=== PATIENT | female | born 1955 | race Caucasian/White ===

== ENCOUNTER 2018-01-29 10:47 | Inpatient (IN) | payer OTHER ==
[2018-01-29 10:53] VITALS: BMI 24.9
--- NOTE | 2018-01-29 12:15 | RAD ---
HISTORY: upper back pain COMPARISON: No prior. TECHNIQUE: Chest PA and lateral FINDINGS: LUNGS: No active pulmonary disease. PLEURA: No significant pleural effusion identified. No pneumothorax apparent. CARDIOVASCULAR: Atherosclerotic aortic calcifications. Cardiomediastinal silhouette within normal OSSEOUS STRUCTURES: Degenerative changes. VISUALIZED UPPER ABDOMEN: Normal. OTHER FINDINGS: None. IMPRESSION: No active disease.
--- NOTE | 2018-01-29 12:26 | ED PDOC ---
HPI: Back Time Seen by Provider: 01/29/18 11:06 Chief Complaint (Nursing): Back Pain Chief Complaint (Provider): Back Pain History Per: Patient, Family ( at bedside) History/Exam Limitations: no limitations Onset/Duration Of Symptoms: Days (x4 weeks) Current Symptoms Are (Timing): Still Present Additional Complaint(s): 62 y/o female presents for evaluation of intermittent upper back pain x4 weeks. Patient states pain worsens with movement and with laying down flat. Denies taking medication prior to arrival, trauma or falls. Patient states that pain is sometimes associated with epigastric abdominal pain. Denies nausea, vomiting , diarrhea, fever, urinary symptoms, cough, and shortness of breath. Patient reports a history of diabetes and HTN, but admits to being noncompliant with her medicines because she claims they dont make her feel well when she takes them. PMD: Aby Fu ([email or web address]) Past Medical History Reviewed: Historical Data, Nursing Documentation, Vital Signs Vital Signs: Last Vital Signs Temp 98 F 01/29/18 10:53 Pulse 85 01/29/18 10:53 Resp 16 01/29/18 10:53 BP 201/89 H 01/29/18 10:53 Pulse Ox 98 01/29/18 11:03 - Medical History PMH: Diabetes, HTN - Surgical History Other surgeries: fibroma removal - Family History Family History: States: Unknown Family Hx - Living Arrangements Living Arrangements: With Family - Social History Current smoker - smoking cessation education provided: No Alcohol: None Drugs: Denies - Home Medications Home Medications: Ambulatory Orders Medication Instructions Recorded Penicillin VK [Penicillin VK Tab] 500 mg PO Q6 01/29/18 Atorvastatin [Lipitor] 10 mg PO DAILY #30 tab 01/30/18 Lisinopril [Zestril] 2.5 mg PO DAILY #30 tab 01/30/18 metFORMIN [glucOPHAGE] 500 mg PO BIDWM #60 tab 01/30/18 - Allergies Allergies/Adverse Reactions: Allergies Allergy/AdvReac Type Severity Reaction Status Date / Time No Known Allergies Allergy Verified 02/05/15 12:20 Review of Systems ROS Statement: Except As Marked, All Systems Reviewed And Found Negative Constitutional: Negative for: Fever Respiratory: Negative for: Cough, Shortness of Breath Gastrointestinal: Positive for: Abdominal Pain. Negative for: Nausea, Vomiting , Diarrhea Genitourinary Female: Negative for: Dysuria, Frequency, Incontinence Musculoskeletal: Positive for: Back Pain Physical Exam - Reviewed Nursing Documentation Reviewed: Yes Vital Signs Reviewed: Yes - Physical Exam Comments: GENERAL APPEARANCE: Patient is awake, alert, oriented x 3, in no acute distress , but uncomfortable. SKIN: Warm, dry; (-) cyanosis. EYES: (-) conjunctival pallor. ENMT: Mucous membranes moist. NECK: Supple, FROM (-) tenderness, (-) stiffness, (-) lymphadenopathy. CHEST AND RESPIRATORY: (-) rales, (-) rhonchi, (-) wheezes; breath sounds equal bilaterally. Speaking in full sentences, respirations even and nonlabored. HEART AND CARDIOVASCULAR: (-) irregularity; (-) murmur, (-) gallop. ABDOMEN AND GI: (+) mild epigastric tenderness; Remainder of abdomen: soft, non- tender, non-distended. (-) palpable masses (-) CVA tenderness BACK: (+) left parathoracic tenderness, (-) direct bony tenderness, (-) deformity. EXTREMITIES: FROM bilateral upper extremities (+) left posterior shoulder tenderness, (-) deformity. Distal pulses good bilaterally. NEURO AND PSYCH: Mental status as above. Gait steady, speech clear. (-) facial asymmetry (-) aphasia - Laboratory Results Result Diagrams: 01/31/18 06:00 01/31/18 06:00 Urine dip results: Positive for: Ketones (trace), Glucose (500), Protein (trace) . Negative for: Leukocyte Esterase, Blood, Nitrate, Bilirubin - ECG O2 Sat by Pulse Oximetry: 98 (RA) Pulse Ox Interpretation: Normal Medical Decision Making Medical Decision Making: Clinical Impression: abdominal pain, back pain, r/o pancreatitis Plan: -EKG -CMP -Lipase -Troponin I -Urine dipstick -CBC -D Dimer -PTT/PT -1LNS -Toradol 15mg IVP -Ultram 50mg PO -Valum 5mg PO -truck striker -IV insertion -Glucose, Blood, POC -Reevaluation 1225 EKG: NSR @ 67bpm, (-) ST elevation, QTc 424 CXR reviewed, radiology report follows HISTORY: upper back pain COMPARISON: No prior. TECHNIQUE: Chest PA and lateral FINDINGS: LUNGS: No active pulmonary disease. PLEURA: No significant pleural effusion identified. No pneumothorax apparent. CARDIOVASCULAR: Atherosclerotic aortic calcifications. Cardiomediastinal silhouette within normal OSSEOUS STRUCTURES: Degenerative changes. VISUALIZED UPPER ABDOMEN: Normal. OTHER FINDINGS: None. IMPRESSION: No active disease. 1300 Accucheck: 213 Blood glucose: 246 Labs reviewed, elevated lipase: 906. CT abd/pel with IV contrast ordered. On re-evaluation patient resting comfortably. Patient further reports that she has not taken her DM medication in 2 years because it "makes her feel bad". Repeat BP: 171/[address] Additional 1L NS Bolus ordered. 1525 PROCEDURE: CT Abdomen and Pelvis with contrast HISTORY: pancreatitis COMPARISON: None. TECHNIQUE: Contrast dose: 90 mL Omnipaque 300 (IV infiltrated mid injection) Radiation dose: Total exam DLP = 399.2 mGy-cm. This CT exam was performed using one or more of the following dose reduction techniques: Automated exposure control, adjustment of the mA and/or kV according to patient size, and/or use of iterative reconstruction technique. FINDINGS: LOWER THORAX: Unremarkable. LIVER: Unremarkable. No gross lesion or ductal dilatation. GALLBLADDER AND BILE DUCTS: Unremarkable. PANCREAS: Mild stranding around the pancreatic head/proximal body. No gross lesion or ductal dilatation. SPLEEN: Unremarkable. ADRENALS: Unremarkable. No mass. KIDNEYS AND URETERS: Unremarkable. No hydronephrosis. No solid mass. VASCULATURE: Unremarkable. No aortic aneurysm. BOWEL: Unremarkable. No obstruction. No gross mural thickening. APPENDIX: Normal appendix. PERITONEUM: Unremarkable. No free fluid. No free air. LYMPH NODES: Unremarkable. No enlarged lymph nodes. BLADDER: Unremarkable. REPRODUCTIVE: Unremarkable. BONES: No acute fracture. OTHER FINDINGS: None. IMPRESSION: Mild stranding around pancreatic head/body compatible with acute pancreatitis. No evidence of necrosis or adjacent fluid collection. Consult placed to Dr Jurado, who admits for Dr Fu [address] Jurado, who is agreeable to admission. Lactated ringer and lipid panel ordered. Consult placed to general surgery, Dr Al Isabel. Consult placed to GI, Dr Sheffield. Cipro IVP and Flagyl IVP ordered. Morphine 2mg and Zofran 4mg IVP ordered for additional pain control. Lab/Diagnostic results d/w the patient/family members in great detail. Diagnosis of pancreatitis, abdominal and upper back pain d/w the patient. Based on history, exam and diagnostic results, plan will be for inpatient admission to med/surg. Scribe Attestation: Documented by Frank Calixto, acting as a scribe for Elenita Donahue PA-C. Provider Scribe Attestation: All medical record entries made by the Scribe were at my direction and personally dictated by me. I have reviewed the chart and agree that the record accurately reflects my personal performance of the history, physical exam, medical decision making, and the department course for this patient. I have also personally directed, reviewed, and agree with the discharge instructions and disposition. Disposition - Clinical Impression Clinical Impression: Pancreatitis, Back pain, Hyperglycemia, Abdominal pain - Patient ED Disposition Is Patient to be Admitted: Yes Counseled Patient/Family Regarding: Studies Performed, Diagnosis - Disposition Disposition Time: 15:33 Condition: FAIR - Pt Status Changed To: Hospital Disposition Of: Inpatient - Admit Certification Admit to Inpatient:: After my assessment, the patient will require hospitalization for at least two midnights. This is because of the severity of symptoms shown, intensity of services needed, and/or the medical risk in this patient being treated as an outpatient. - POA Present On Arrival: Poor Glycemic Control Results - Lab Results Lab Results: 01/29/18 01/29/18 01/29/18 12:34 11:45 11:45 WBC RBC Hgb Hct MCV MCH MCHC RDW Plt Count MPV Neut % (Auto) Lymph % (Auto) [place] % (Auto) Eos % (Auto) Baso % (Auto) Neut # (Auto) Lymph # (Auto) [place] # (Auto) Eos # (Auto) Baso # (Auto) PT 10.5 INR 1.0 APTT 20.2 L D-Dimer, Quantitative 203 Sodium 138 Potassium 4.4 Chloride 104 Carbon Dioxide 25 Anion Gap 13 BUN 18 H Creatinine 0.4 L Est GFR ( Amer) > 60 Est GFR (Non-Af Amer) > 60 POC Glucose (mg/dL) 213 H Random Glucose 246 H Calcium 9.0 Total Bilirubin 0.7 AST 26 ALT 37 Alkaline Phosphatase 102 Troponin I < 0.0120 Total Protein 7.3 Albumin 3.9 Globulin 3.3 Albumin/Globulin Ratio 1.2 Lipase 906 H 01/29/18 11:45 WBC 5.1 RBC 4.94 Hgb 14.2 Hct 42.5 MCV 86.1 MCH 28.6 MCHC 33.3 RDW 12.6 Plt Count 220 MPV 9.5 Neut % (Auto) 49.2 L Lymph % (Auto) 42.4 H [place] % (Auto) 7.0 Eos % (Auto) 0.8 Baso % (Auto) 0.6 Neut # (Auto) 2.5 Lymph # (Auto) 2.2 [place] # (Auto) 0.4 Eos # (Auto) 0.0 Baso # (Auto) 0.0 PT INR APTT D-Dimer, Quantitative Sodium Potassium Chloride Carbon Dioxide Anion Gap BUN Creatinine Est GFR ( Amer) Est GFR (Non-Af Amer) POC Glucose (mg/dL) Random Glucose Calcium Total Bilirubin AST ALT Alkaline Phosphatase Troponin I Total Protein Albumin Globulin Albumin/Globulin Ratio Lipase
[2018-01-29 12:27] LABS: ALB/GLOB RATIO 1.2 (1.0-2.1); ALBUMIN 3.9 g/dL (3.5-5.0); ALT/SGPT 37 U/L (9-52); AST/SGOT 26 U/L (14-36); BLOOD UREA NITROGEN 18 mg/dl (7-17); GFR AFRICAN-AMERICAN > 60; GFR NON-AFRICAN AMERICAN > 60; LIPASE 906 U/L (23-300)
[2018-01-29 12:30] LABS: PARTIAL THROMBOPLASTIN TIME 20.2 Seconds (25.6-37.1); PROTHROMBIN TIME 10.5 Seconds (9.8-13.1)
[2018-01-29] MEDS ORDERED: Sodium Chloride 0.9% 1,000 ML IV SCH ×2 (12:45→14:15)
[2018-01-29 12:56] LABS: BASO % 0.6 % (0.0-2.0); EOS % 0.8 % (0.0-4.0); HEMOGLOBIN 14.2 g/dL (12.0-16.0); LYMPH # 2.2 K/uL (1.0-4.3); LYMPH % 42.4 % (20.0-40.0); MEAN CELL VOLUME 86.1 fl (81.0-99.0); MEAN CORPUSCULAR HEMOGLOBIN 28.6 pg (27.0-31.0); MEAN CORPUSCULAR HGB CONC 33.3 g/dL (33.0-37.0); MEAN PLATELET VOLUME 9.5 fl (7.2-11.7); MONO # 0.4 K/uL (0.0-0.8); NEUT # 2.5 K/uL (1.8-7.0); NEUT % 49.2 % (50.0-75.0); NRBC % 0.1 % (0.0-0.0); RBC 4.94 Mil/uL (3.80-5.20); RED CELL DISTRIBUTION WIDTH 12.6 % (11.5-14.5); WHITE BLOOD COUNT 5.1 K/uL (4.8-10.8)
[2018-01-29] MEDS ORDERED: Iohexol 300 100 ML IJ ONE (14:25)
[2018-01-29] MEDS ORDERED: Sodium Chloride 0.9% 50 ML IV ONE (14:25)
--- NOTE | 2018-01-29 15:17 | CT ---
PROCEDURE: CT Abdomen and Pelvis with contrast HISTORY: pancreatitis COMPARISON: None. TECHNIQUE: Contrast dose: 90 mL Omnipaque 300 (IV infiltrated mid injection) Radiation dose: Total exam DLP = 399.2 mGy-cm. This CT exam was performed using one or more of the following dose reduction techniques: Automated exposure control, adjustment of the mA and/or kV according to patient size, and/or use of iterative reconstruction technique. FINDINGS: LOWER THORAX: Unremarkable. LIVER: Unremarkable. No gross lesion or ductal dilatation. GALLBLADDER AND BILE DUCTS: Unremarkable. PANCREAS: Mild stranding around the pancreatic head/proximal body. No gross lesion or ductal dilatation. SPLEEN: Unremarkable. ADRENALS: Unremarkable. No mass. KIDNEYS AND URETERS: Unremarkable. No hydronephrosis. No solid mass. VASCULATURE: Unremarkable. No aortic aneurysm. BOWEL: Unremarkable. No obstruction. No gross mural thickening. APPENDIX: Normal appendix. PERITONEUM: Unremarkable. No free fluid. No free air. LYMPH NODES: Unremarkable. No enlarged lymph nodes. BLADDER: Unremarkable. REPRODUCTIVE: Unremarkable. BONES: No acute fracture. OTHER FINDINGS: None. IMPRESSION: Mild stranding around pancreatic head/body compatible with acute pancreatitis. No evidence of necrosis or adjacent fluid collection.
[2018-01-29] MEDS ORDERED: metroNIDAZOLE 500mg/100ml NS 100 ML IVPB SCH (15:45)
[2018-01-29] MEDS ORDERED: Lactated Ringer's 1,000 ML IV SCH (15:45)
[2018-01-29] MEDS ORDERED: Ciprofloxacin 400mg/200ml D5W 400 MG/200 ML BAG IVPB SCH (15:45)
[2018-01-29] MEDS ORDERED: Ciprofloxacin 400mg/200ml D5W 400 MG/200 ML BAG IVPB ONE (16:23)
[2018-01-29] MEDS ORDERED: metroNIDAZOLE 500mg/100ml NS 100 ML IVPB ONE (17:49)
[2018-01-29 18:37] LABS: HDL CHOLESTEROL 38 MG/DL (30-70)
[2018-01-29 18:48] LABS: LDL CHOLESTEROL 123 mg/dL (0-129)
--- NOTE | 2018-01-29 19:31 | CP.PCM.CON ---
<Flo Avilez - Last Filed: 01/30/18 06:42> History of Present Illness - History of Present Illness History of Present Illness: General Surgery Consult Note: Dr. Isabel 62F with PMHx of HTN, DM presents to [facility] ED with complaints of back pain. Patient reports she's been dealing with the back pain for the past 4 weeks. She states back pain was worse today so she decided to come to hospital. Patient denies having any abdominal pain. She states pain is localized to midthoracic region. Denies fever/chills, chest pain/SOB, nausea, vomiting, diarrhea. Denies any recent trauma to the region. Patient does admit to having less of an appetite since the pain began. PMHx: as stated above PSurgHx: Excision of fibroma ~10yrs ago Allergies: NKDA Fam Hx: non-contributory Soc Hx: Denies EtOH consumption, denies smoking, denies illicit drug use Review of Systems - Review of Systems Review of Systems: 12 pt ROS unremarkable, except as stated in HPI Past Patient History - Tetanus Immunizations Tetanus Immunization: Unknown - Past Medical History & Family History Past Medical History?: Yes - Past Social History Alcohol: None Drugs: Denies - CARDIAC Hx Hypertension: Yes - PULMONARY Hx Asthma: No Hx Bronchitis: No Hx Chronic Obstructive Pulmonary Disease (COPD): No - NEUROLOGICAL Hx Dementia: No - ENDOCRINE/METABOLIC Hx Endocrine Disorders: Yes - HEMATOLOGICAL/ONCOLOGICAL Hx Blood Disorders: No - MUSCULOSKELETAL/RHEUMATOLOGICAL Hx Falls: No - PSYCHIATRIC Hx Substance Use: No - SURGICAL HISTORY Other/Comment: Fibroid removed, tubal ligation - ANESTHESIA Hx Anesthesia: Yes Hx Anesthesia Reactions: No Meds Allergies/Adverse Reactions: Allergies Allergy/AdvReac Type Severity Reaction Status Date / Time No Known Allergies Allergy Verified 02/05/15 12:20 - Medications Medications: Current Medications Sodium Chloride (Sodium Chloride 0.9%) 1,000 mls @ 1,000 mls/hr IV .Q1H JUN Lactated Ringer's (Lactated Ringer's) 1,000 mls @ 1,000 mls/hr IV .Q1H JUN Last Admin: 01/29/18 17:50 Dose: 1,000 mls/hr Ciprofloxacin (Cipro 400mg/200ml Dsw) 400 mg in 200 mls @ 200 mls/hr IVPB Q12 JUN PRN Reason: Protocol Last Admin: 01/29/18 16:28 Dose: 200 mls/hr Metronidazole (Flagyl 500mg/100ml Ns) 100 mls @ 100 mls/hr IVPB Q12 JUN PRN Reason: Protocol Last Admin: 01/29/18 17:50 Dose: 100 mls/hr Physical Exam - Constitutional Appears: Non-toxic, No Acute Distress - Head Exam Head Exam: NORMOCEPHALIC - Eye Exam Eye Exam: EOMI, Normal appearance - Respiratory Exam Respiratory Exam: NORMAL BREATHING PATTERN - Cardiovascular Exam Cardiovascular Exam: +S1, +S2 - GI/Abdominal Exam GI & Abdominal Exam: Soft. absent: Distended, Firm, Guarding, Rebound, Rigid, Tenderness - Back Exam Back exam: paraspinal tenderness - Neurological Exam Neurological exam: Alert, Oriented x3 - Skin Skin Exam: Dry, Intact, Warm Results - Vital Signs Recent Vital Signs: Last Vital Signs Temp 97.6 F 01/29/18 18:52 Pulse 63 01/29/18 18:52 Resp 20 01/29/18 18:52 BP 143/76 01/29/18 18:52 Pulse Ox 95 01/29/18 18:52 - Labs Result Diagrams: 01/30/18 06:05 01/30/18 06:05 Labs: Laboratory Results - last 24 hr 01/29/18 01/29/18 01/29/18 11:45 11:45 11:45 WBC 5.1 RBC 4.94 Hgb 14.2 Hct 42.5 MCV 86.1 MCH 28.6 MCHC 33.3 RDW 12.6 Plt Count 220 MPV 9.5 Neut % (Auto) 49.2 L Lymph % (Auto) 42.4 H [place] % (Auto) 7.0 Eos % (Auto) 0.8 Baso % (Auto) 0.6 Neut # (Auto) 2.5 Lymph # (Auto) 2.2 [place] # (Auto) 0.4 Eos # (Auto) 0.0 Baso # (Auto) 0.0 PT 10.5 INR 1.0 APTT 20.2 L D-Dimer, Quantitative 203 Sodium 138 Potassium 4.4 Chloride 104 Carbon Dioxide 25 Anion Gap 13 BUN 18 H Creatinine 0.4 L Est GFR ( Amer) > 60 Est GFR (Non-Af Amer) > 60 POC Glucose (mg/dL) Random Glucose 246 H Calcium 9.0 Total Bilirubin 0.7 AST 26 ALT 37 Alkaline Phosphatase 102 Troponin I < 0.0120 Total Protein 7.3 Albumin 3.9 Globulin 3.3 Albumin/Globulin Ratio 1.2 Triglycerides 158 H Cholesterol 219 H LDL Cholesterol Direct 123 HDL Cholesterol 38 Lipase 906 H 01/29/18 12:34 WBC RBC Hgb Hct MCV MCH MCHC RDW Plt Count MPV Neut % (Auto) Lymph % (Auto) [place] % (Auto) Eos % (Auto) Baso % (Auto) Neut # (Auto) Lymph # (Auto) [place] # (Auto) Eos # (Auto) Baso # (Auto) PT INR APTT D-Dimer, Quantitative Sodium Potassium Chloride Carbon Dioxide Anion Gap BUN Creatinine Est GFR ( Amer) Est GFR (Non-Af Amer) POC Glucose (mg/dL) 213 H Random Glucose Calcium Total Bilirubin AST ALT Alkaline Phosphatase Troponin I Total Protein Albumin Globulin Albumin/Globulin Ratio Triglycerides Cholesterol LDL Cholesterol Direct HDL Cholesterol Lipase Assessment & Plan - Assessment and Plan (Free Text) Assessment: 62F with pancreatitis, ?etiology Plan: -NPO -No clinical indication for ABx -Aggressive IVF hydration, titrate to UOP of at least 0.5cc/kg -Abdominal U/S to r/o presence of gallstones -F/u GI recs -F/u AM labs D/w Dr. Chalo Lauren PGY 2 <Marla Isabel - Last Filed: 01/31/18 16:47> Results - Vital Signs Recent Vital Signs: Last Vital Signs Temp 97.4 F L 01/31/18 08:01 Pulse 69 01/31/18 08:50 Resp 18 01/31/18 08:01 BP 158/82 H 01/31/18 08:50 Pulse Ox 95 01/31/18 08:01 - Labs Result Diagrams: 01/31/18 06:00 01/31/18 06:00 Labs: Laboratory Results - last 24 hr 01/30/18 01/31/18 01/31/18 22:21 05:17 06:00 WBC 5.3 RBC 4.80 Hgb 14.0 Hct 40.8 MCV 85.1 MCH 29.3 MCHC 34.4 RDW 12.6 Plt Count 191 Sodium Potassium Chloride Carbon Dioxide Anion Gap BUN Creatinine Est GFR ( Amer) Est GFR (Non-Af Amer) POC Glucose (mg/dL) 142 H 159 H Random Glucose Calcium Total Bilirubin AST ALT Alkaline Phosphatase Total Protein Albumin Globulin Albumin/Globulin Ratio Amylase Lipase 01/31/18 01/31/18 06:00 10:50 WBC RBC Hgb Hct MCV MCH MCHC RDW Plt Count Sodium 139 Potassium 3.5 L Chloride 103 Carbon Dioxide 29 Anion Gap 11 BUN 14 Creatinine 0.5 L Est GFR ( Amer) > 60 Est GFR (Non-Af Amer) > 60 POC Glucose (mg/dL) 249 H Random Glucose 181 H Calcium 9.0 Total Bilirubin 0.5 AST 22 ALT 37 Alkaline Phosphatase 93 Total Protein 6.3 Albumin 3.4 L Globulin 2.9 Albumin/Globulin Ratio 1.2 Amylase 79 Lipase 419 H Assessment & Plan - Assessment and Plan (Free Text) Plan: Discussed with resident staff ad agree with above. No evidence of cholelithiasis on US. Medical work-up for etiology of pancreatitis. If patient has recurrent episodes, recommend MRCP to rule out pancreaticobiliary lesions, can also been done as outpatient.
[2018-01-29] MEDS: Lactated Ringer's 1,000 ML IV SCH (20:40)
[2018-01-30] MEDS: Lactated Ringer's 1,000 ML IV SCH ×5 (01:06→16:47)
[2018-01-30] MEDS ORDERED: Ciprofloxacin 400mg/200ml D5W 400 MG/200 ML BAG IVPB SCH (05:00)
[2018-01-30] MEDS ORDERED: metroNIDAZOLE 500mg/100ml NS 100 ML IVPB SCH (06:00)
[2018-01-30 06:24] LABS: HEMOGLOBIN 13.3 g/dL (12.0-16.0); MEAN CELL VOLUME 85.6 fl (81.0-99.0); MEAN CORPUSCULAR HEMOGLOBIN 28.7 pg (27.0-31.0); MEAN CORPUSCULAR HGB CONC 33.5 g/dL (33.0-37.0); RBC 4.62 Mil/uL (3.80-5.20); RED CELL DISTRIBUTION WIDTH 12.6 % (11.5-14.5)
[2018-01-30 06:32] LABS: ALB/GLOB RATIO 1.1 (1.0-2.1); ALBUMIN 3.2 g/dL (3.5-5.0); ALT/SGPT 33 U/L (9-52); AMYLASE 67 U/L (30-110); AST/SGOT 19 U/L (14-36); BLOOD UREA NITROGEN 11 mg/dl (7-17); CALCIUM 8.4 mg/dL (8.4-10.2); GFR AFRICAN-AMERICAN > 60; GFR NON-AFRICAN AMERICAN > 60; HDL CHOLESTEROL 33 MG/DL (30-70); LIPASE 303 U/L (23-300)
[2018-01-30 06:48] LABS: T4 7.35 ug/dl (5.5-11.0)
[2018-01-30 07:01] LABS: T3 0.781 nmol/L (1.49-2.60)
[2018-01-30 07:04] LABS: LDL CHOLESTEROL 113 mg/dL (0-129)
[2018-01-30] MEDS: Enoxaparin 40 mg Syringe SC SCH (08:17)
--- NOTE | 2018-01-30 08:54 | CP.PCM.CON ---
<Shin Isabel - Last Filed: 01/30/18 12:05> History of Present Illness - History of Present Illness History of Present Illness: Initial PGY4 GI consult Susan Blackwell is a 62F w/ hx of DM and HTN who presents to the hospital due to back pain. Pt states that her pain started 4 weeks prior and located in her left scapular area, s/p fall. Denies any radiation. She notes that it is constant and rates it a 8 out of 10. She notes interval improvement of pain after admission. Denies any radiation. Denies any abd pain. Denies any nausea, vomiting or diarrhea. She denies any previous episode of pancreatitis. No previous hx of ETOH and smoking. She is non-compliant on all home meds. She was previously admitted in 2014 for decending colitis. She reportedly had a colonoscopy 3 years ago at [facility], but does not recall the results and did not follow-up post endoscopy. Upon arrival to the ED (this admission), pt was started on LR and a CT ab was obtained which revealed mild stranding of the head and body of the pancreas. PMHX: DM and HTN PShx: none Social Hx: denies any hx of smoking, ETOH or illicit drung Family hx: brother: colon cancer diag at 52, mother: vaginal cancer: 80, sister : gallbladder cancer Endo hx: Colonoscopy 3 years prior and 10 years ago ROS: 12 point ROS conducted, neg other than above Past Patient History - Tetanus Immunizations Tetanus Immunization: Unknown - Past Medical History & Family History Past Medical History?: Yes - Past Social History Alcohol: None Drugs: Denies - CARDIAC Hx Hypertension: Yes - PULMONARY Hx Asthma: No Hx Bronchitis: No Hx Chronic Obstructive Pulmonary Disease (COPD): No - NEUROLOGICAL Hx Dementia: No - HEENT Hx HEENT Problems: No - RENAL Hx Chronic Kidney Disease: No - ENDOCRINE/METABOLIC Hx Endocrine Disorders: Yes - HEMATOLOGICAL/ONCOLOGICAL Hx Blood Disorders: No - INTEGUMENTARY Hx Dermatological Problems: No - MUSCULOSKELETAL/RHEUMATOLOGICAL Hx Falls: No - GASTROINTESTINAL Hx Gastrointestinal Disorders: No - GENITOURINARY/GYNECOLOGICAL Hx Genitourinary Disorders: No - PSYCHIATRIC Hx Substance Use: No - SURGICAL HISTORY Other/Comment: Fibroid removed, tubal ligation - ANESTHESIA Hx Anesthesia: Yes Hx Anesthesia Reactions: No Meds Allergies/Adverse Reactions: Allergies Allergy/AdvReac Type Severity Reaction Status Date / Time No Known Allergies Allergy Verified 02/05/15 12:20 - Medications Medications: Current Medications Enoxaparin Sodium (Lovenox) 40 mg SC DAILY JUN PRN Reason: Protocol Last Admin: 01/30/18 08:17 Dose: 40 mg Lactated Ringer's (Lactated Ringer's) 1,000 mls @ 150 mls/hr IV .Q6H40M [facility] Last Admin: 01/30/18 08:16 Dose: 150 mls/hr Ketorolac Tromethamine (Toradol) 15 mg IVP Q6 PRN PRN Reason: Pain, moderate (4-7) Physical Exam - Constitutional Appears: Well, No Acute Distress - Head Exam Head Exam: ATRAUMATIC, NORMOCEPHALIC - Eye Exam Eye Exam: Normal appearance - ENT Exam ENT Exam: Mucous Membranes Moist - Neck Exam Neck exam: Positive for: Normal Inspection - Respiratory Exam Respiratory Exam: Clear to Auscultation Bilateral, NORMAL BREATHING PATTERN. absent: Rales, Rhonchi, Wheezes, Respiratory Distress - Cardiovascular Exam Cardiovascular Exam: REGULAR RHYTHM, +S1, +S2 - GI/Abdominal Exam GI & Abdominal Exam: Normal Bowel Sounds, Soft. absent: Diminished Bowel Sounds , Distended, Firm, Guarding, Organomegaly, Rebound, Rigid, Tenderness - Extremities Exam Extremities exam: Negative for: joint swelling, pedal edema - Neurological Exam Neurological exam: Alert, Oriented x3 - Psychiatric Exam Psychiatric exam: Normal Affect, Normal Mood - Skin Skin Exam: Dry, Intact, Normal Color, Warm Results - Vital Signs Recent Vital Signs: Last Vital Signs Temp 98.0 F 01/30/18 08:08 Pulse 68 01/30/18 08:08 Resp 19 01/30/18 08:08 BP 152/75 H 01/30/18 08:08 Pulse Ox 97 01/30/18 08:08 - Labs Result Diagrams: 01/30/18 06:05 01/30/18 06:05 Labs: Laboratory Results - last 24 hr 01/29/18 01/29/18 01/29/18 11:45 11:45 11:45 WBC 5.1 RBC 4.94 Hgb 14.2 Hct 42.5 MCV 86.1 MCH 28.6 MCHC 33.3 RDW 12.6 Plt Count 220 MPV 9.5 Neut % (Auto) 49.2 L Lymph % (Auto) 42.4 H [place] % (Auto) 7.0 Eos % (Auto) 0.8 Baso % (Auto) 0.6 Neut # (Auto) 2.5 Lymph # (Auto) 2.2 [place] # (Auto) 0.4 Eos # (Auto) 0.0 Baso # (Auto) 0.0 PT 10.5 INR 1.0 APTT 20.2 L D-Dimer, Quantitative 203 Sodium 138 Potassium 4.4 Chloride 104 Carbon Dioxide 25 Anion Gap 13 BUN 18 H Creatinine 0.4 L Est GFR ( Amer) > 60 Est GFR (Non-Af Amer) > 60 POC Glucose (mg/dL) Random Glucose 246 H Calcium 9.0 Total Bilirubin 0.7 AST 26 ALT 37 Alkaline Phosphatase 102 Troponin I < 0.0120 Total Protein 7.3 Albumin 3.9 Globulin 3.3 Albumin/Globulin Ratio 1.2 Triglycerides 158 H Cholesterol 219 H LDL Cholesterol Direct 123 HDL Cholesterol 38 Amylase Lipase 906 H Vitamin B12 Thyroxine (T4) Total T3 TSH 3rd Generation 01/29/18 01/30/18 01/30/18 12:34 06:05 06:05 WBC 6.0 RBC 4.62 Hgb 13.3 Hct 39.6 MCV 85.6 MCH 28.7 MCHC 33.5 RDW 12.6 Plt Count 169 MPV Neut % (Auto) Lymph % (Auto) [place] % (Auto) Eos % (Auto) Baso % (Auto) Neut # (Auto) Lymph # (Auto) [place] # (Auto) Eos # (Auto) Baso # (Auto) PT INR APTT D-Dimer, Quantitative Sodium 136 Potassium 3.6 Chloride 104 Carbon Dioxide 27 Anion Gap 9 L BUN 11 Creatinine 0.4 L Est GFR ( Amer) > 60 Est GFR (Non-Af Amer) > 60 POC Glucose (mg/dL) 213 H Random Glucose 207 H Calcium 8.4 Total Bilirubin 0.5 AST 19 ALT 33 Alkaline Phosphatase 91 Troponin I Total Protein 6.0 L Albumin 3.2 L Globulin 2.8 Albumin/Globulin Ratio 1.1 Triglycerides 143 Cholesterol 191 LDL Cholesterol Direct 113 HDL Cholesterol 33 Amylase 67 Lipase 303 H Vitamin B12 534 Thyroxine (T4) 7.35 Total T3 0.781 L TSH 3rd Generation 1.88 Assessment & Plan - Assessment and Plan (Free Text) Assessment: Susan Blackwell is a 62F w/ hx of HTN and DM who presents to he ER with complaints of back pain Acute Pancreatitis; etiology unknown; r/o cholelithiasis, autoimmune, TG; Denies ETOH Back pain, likely from pancreatitis, DDx: musculoskeletal Family hx of colon cancer Family hx of GB cancer Plan: -agree with abd u/s to r/o cholelithiasis -continue LR at 150ml/hr -can start clears today and advance to low fat as tolerated -recommend lipid panel and IGG4 -if serological markers are neg, recommend f/u pancreas CT or EUS -avoid smoking or ETOH -pain management as per primary team -monitor I/O -monitor H/H and BUN -follow-up with primary GI for colonoscopy results -will follow Will D/W Dr. Krishnan <Anthony Krishnan - Last Filed: 01/30/18 14:13> Meds - Medications Medications: Current Medications Atorvastatin Calcium (Lipitor) 10 mg PO DAILY [facility] Dextrose (Dextrose 50% Inj) 0 ml IV STAT PRN; Protocol PRN Reason: Hypoglycemia Protocol Dextrose (Glutose 15) 0 gm PO ONCE PRN; Protocol PRN Reason: Hypoglycemia Protocol Enoxaparin Sodium (Lovenox) 40 mg SC DAILY [facility] PRN Reason: Protocol Last Admin: 01/30/18 08:17 Dose: 40 mg Glucagon (Glucagen Diagnostic Kit) 0 mg IM STAT PRN; Protocol PRN Reason: Hypoglycemia Protocol Lactated Ringer's (Lactated Ringer's) 1,000 mls @ 150 mls/hr IV .Q6H40M [facility] Last Admin: 01/30/18 10:32 Dose: Not Given Insulin Human Regular (Humulin R) 0 units SC ACHS [facility] PRN Reason: Protocol Ketorolac Tromethamine (Toradol) 15 mg IVP Q6 PRN PRN Reason: Pain, moderate (4-7) Last Admin: 01/30/18 10:39 Dose: 15 mg Lisinopril (Zestril) 2.5 mg PO DAILY [facility] Metformin HCl (Glucophage) 500 mg PO BIDWM [facility] Results - Vital Signs Recent Vital Signs: Last Vital Signs Temp 98.0 F 01/30/18 08:08 Pulse 68 01/30/18 08:08 Resp 19 01/30/18 08:08 BP 152/75 H 01/30/18 08:08 Pulse Ox 97 01/30/18 08:08 - Labs Result Diagrams: 01/30/18 06:05 01/30/18 06:05 Labs: Laboratory Results - last 24 hr 01/29/18 01/30/18 01/30/18 11:45 05:45 06:05 WBC 6.0 RBC 4.62 Hgb 13.3 Hct 39.6 MCV 85.6 MCH 28.7 MCHC 33.5 RDW 12.6 Plt Count 169 Sodium 138 Potassium 4.4 Chloride 104 Carbon Dioxide 25 Anion Gap 13 BUN 18 H Creatinine 0.4 L Est GFR ( Amer) > 60 Est GFR (Non-Af Amer) > 60 POC Glucose (mg/dL) 201 H Random Glucose 246 H Hemoglobin A1c Calcium 9.0 Total Bilirubin 0.7 AST 26 ALT 37 Alkaline Phosphatase 102 Troponin I < 0.0120 Total Protein 7.3 Albumin 3.9 Globulin 3.3 Albumin/Globulin Ratio 1.2 Triglycerides 158 H Cholesterol 219 H LDL Cholesterol Direct 123 HDL Cholesterol 38 Amylase Lipase 906 H Vitamin B12 Thyroxine (T4) Total T3 TSH 3rd Generation 01/30/18 01/30/18 01/30/18 06:05 07:55 10:51 WBC RBC Hgb Hct MCV MCH MCHC RDW Plt Count Sodium 136 Potassium 3.6 Chloride 104 Carbon Dioxide 27 Anion Gap 9 L BUN 11 Creatinine 0.4 L Est GFR ( Amer) > 60 Est GFR (Non-Af Amer) > 60 POC Glucose (mg/dL) 189 H Random Glucose 207 H Hemoglobin A1c 13.6 H D Calcium 8.4 Total Bilirubin 0.5 AST 19 ALT 33 Alkaline Phosphatase 91 Troponin I Total Protein 6.0 L Albumin 3.2 L Globulin 2.8 Albumin/Globulin Ratio 1.1 Triglycerides 143 Cholesterol 191 LDL Cholesterol Direct 113 HDL Cholesterol 33 Amylase 67 Lipase 303 H Vitamin B12 534 Thyroxine (T4) 7.35 Total T3 0.781 L TSH 3rd Generation 1.88 Attending/Attestation - Attestation I have personally seen and examined this patient.: Yes I have fully participated in the care of the patient.: Yes I have reviewed all pertinent clinical information: Yes Notes (Text): 01/30/18 14:12 62 year old female who is admitted with mild acute pancreatitis. Recommend IV hydration/pain control. She is already improved. Low fat diet as tolerated. Await trig/IGG4. No smoking or gallstones. No prior episodes. Only had recent fall prior to onset.
--- NOTE | 2018-01-30 10:13 | US ---
HISTORY: pancreatitis, r/o cholelithiasis COMPARISON: None. TECHNIQUE: Sonographic evaluation of the abdomen. FINDINGS: LIVER: Measures 13.0 cm. Mildly increased echogenicity of the liver parenchyma. No mass. No intrahepatic bile duct dilatation. GALLBLADDER: Unremarkable. No gallstones. COMMON BILE DUCT: Measures 3.6 mm. No stones. No dilatation. PANCREAS: Unremarkable as visualized. No mass. No ductal dilatation. RIGHT KIDNEY: Measures 12.2cm. Normal echogenicity. No calculus, mass, or hydronephrosis. LEFT KIDNEY: Measures 11.4cm. Normal echogenicity. No calculus, mass, or hydronephrosis. SPLEEN: Normal in size and contour. No mass. AORTA: No aneurysmal dilatation. IVC: Unremarkable. OTHER FINDINGS: None. IMPRESSION: Limited hepatic steatosis is suggested diffusely. Ultrasound examination is otherwise unremarkable as described above.
--- NOTE | 2018-01-30 11:41 | CARD ---
APPROVED REPORT EKG Measurement Heart [id number] <Conclusion> Normal sinus rhythm Voltage criteria for left ventricular hypertrophy Abnormal ECG
--- NOTE | 2018-01-30 12:40 | CP.PCM.PN ---
Subjective - Date & Time of Evaluation Date of Evaluation: 01/30/18 Time of Evaluation: 07:00 - Subjective Subjective: General Surgery Progress Note - Dr. Isabel 62F seen and examined this AM. No acute events overnight. Patient reports improvement in back pain since admission. Denies N/V/F/D/C/SOB. Objective - Vital Signs/Intake and Output Vital Signs (last 24 hours): Temp Pulse Resp BP Pulse Ox 98.0 F 68 19 152/75 H 97 01/30/18 08:08 01/30/18 08:08 01/30/18 08:08 01/30/18 08:08 01/30/18 08:08 - Medications Medications: Current Medications Enoxaparin Sodium (Lovenox) 40 mg SC DAILY JUN PRN Reason: Protocol Last Admin: 01/30/18 08:17 Dose: 40 mg Lactated Ringer's (Lactated Ringer's) 1,000 mls @ 150 mls/hr IV .Q6H40M JUN Last Admin: 01/30/18 10:32 Dose: Not Given Ketorolac Tromethamine (Toradol) 15 mg IVP Q6 PRN PRN Reason: Pain, moderate (4-7) Last Admin: 01/30/18 10:39 Dose: 15 mg - Labs Labs: 01/30/18 06:05 01/30/18 06:05 PT 10.5 Seconds (9.8-13.1) 01/29/18 11:45 INR 1.0 (0.9-1.2) 01/29/18 11:45 APTT 20.2 Seconds (25.6-37.1) L 01/29/18 11:45 - Constitutional Appears: Well, Non-toxic, No Acute Distress - Head Exam Head Exam: ATRAUMATIC, NORMOCEPHALIC - Eye Exam Eye Exam: EOMI, Normal appearance. absent: Scleral icterus Pupil Exam: NORMAL ACCOMODATION - ENT Exam ENT Exam: Mucous Membranes Moist - Neck Exam Neck Exam: Normal Inspection - Respiratory Exam Respiratory Exam: NORMAL BREATHING PATTERN. absent: Respiratory Distress - Cardiovascular Exam Cardiovascular Exam: REGULAR RHYTHM - GI/Abdominal Exam GI & Abdominal Exam: Soft - Back Exam Back Exam: paraspinal tenderness - Neurological Exam Neurological Exam: Alert, Awake, Oriented x3 - Psychiatric Exam Psychiatric exam: Normal Affect, Normal Mood - Skin Skin Exam: Dry, Intact, Normal Color, Warm Assessment and Plan - Assessment and Plan (Free Text) Assessment: 62 year old female with pancreatitis Plan: -s/p IVF hydration -No indication for abx -Abdominal US = negative for cholelithiasis -GI recs appreciated -Start clears, advance to low fat diet as tolerated -Pain control per primary Further recs per Dr. Isabel
[2018-01-30] MEDS ORDERED: Dextrose 50% SYRINGE Inj (50 ml) IV PRN (13:38)
[2018-01-30] MEDS ORDERED: Glucagon Recombinant 1 mg Inj IM PRN (13:38)
[2018-01-30] MEDS: Insulin Regular 100 units/ml SC SCH ×2 (16:47→22:41)
--- NOTE | 2018-01-30 18:48 | HP ---
CHIEF COMPLAINT: Abdominal pain. HISTORY OF PRESENT ILLNESS: This is a 62-year-old female known case of diabetes and hypertension, who was having abdominal pain and back pain for few days. The patient was brought to emergency room where the patient was found to have acute pancreatitis and was admitted for further management. REVIEW OF SYSTEMS: Review of systems is positive for abdominal pain. Review of system otherwise is negative for headache, dizziness, syncope, loss of consciousness, chest pain, shortness of breath, nausea, vomiting, diarrhea, constipation, any new joint or extremity pain. Review of systems of all other organ system is unremarkable. PAST MEDICAL HISTORY: Remarkable for diabetes and hypertension. PAST SURGICAL HISTORY: Unremarkable. PERSONAL HISTORY: The patient is currently nonsmoker and nondrinker. No substance abuse. MEDICATIONS The patient is on multiple medication, which is as per reconciliation sheet, which was reviewed and ordered. FAMILY HISTORY: Noncontributory. PHYSICAL EXAMINATION: GENERAL: Well-developed and well-nourished 62-year-old female in no acute distress. VITAL SIGNS: Stable. Temperature is afebrile, pulse , respirations 18, and blood pressure 130/76. HEENT: Pupils reacting to light. No JVD. No thyromegaly. No lymphadenopathy. No nystagmus. Normocephalic, atraumatic skull. HEART: S1 and S2, normal and regular. No significant murmur, gallop, or rub is heard. LUNGS: Shows good bilateral air exchange. No rales or rhonchi. ABDOMEN: Soft and nontender. No organomegaly. No fluid. Bowel sounds are present and normal. No sign of acute abdomen. No guarding, no rigidity, no rebound. EXTREMITIES: No edema, no calf swelling, no tenderness, and no acute ischemia. COLLECTIONS SPECIALIST: The patient is alert, awake, oriented x3. There is no sign of any acute gross focal motor or sensory neurological deficit. DIAGNOSTIC DATA: Available diagnostic data reviewed. Lipase level was 900, now coming down to 300. Other labs are acceptable. CAT scan also is consistent with acute pancreatitis. ADMITTING IMPRESSION: Acute pancreatitis, diabetes type 2 with hyperglycemia, and hypertension. PLAN: As ordered, treatment and plan discussed with the patient. Jose Enrique Jurado MD
[2018-01-30 23:25] VITALS: PULSE 69; RESP 18
[2018-01-31] MEDS: Lactated Ringer's 1,000 ML IV SCH ×3 (01:48→06:52)
[2018-01-31 06:18] LABS: MEAN CELL VOLUME 85.1 fl (81.0-99.0); MEAN CORPUSCULAR HEMOGLOBIN 29.3 pg (27.0-31.0); MEAN CORPUSCULAR HGB CONC 34.4 g/dL (33.0-37.0); RBC 4.8 Mil/uL (3.80-5.20); RED CELL DISTRIBUTION WIDTH 12.6 % (11.5-14.5); WHITE BLOOD COUNT 5.3 K/uL (4.8-10.8)
[2018-01-31 06:41] LABS: ALB/GLOB RATIO 1.2 (1.0-2.1); ALBUMIN 3.4 g/dL (3.5-5.0); ALT/SGPT 37 U/L (9-52); AMYLASE 79 U/L (30-110); AST/SGOT 22 U/L (14-36); BLOOD UREA NITROGEN 14 mg/dl (7-17); GFR AFRICAN-AMERICAN > 60; GFR NON-AFRICAN AMERICAN > 60; LIPASE 419 U/L (23-300)
--- NOTE | 2018-01-31 07:12 | CP.PCM.PN ---
<Shin Isabel - Last Filed: 01/31/18 11:25> Subjective - Date & Time of Evaluation Date of Evaluation: 01/31/18 Time of Evaluation: 07:00 - Subjective Subjective: PGY4 GI Follow-up Pt seen and examined bedside Denies any abd pain still has some MSK pain in Right upper back tolerated low fat diet +BM denies any fever, chills or diaphoresis ROS: 12 point ROS conducted, neg other than above Objective - Vital Signs/Intake and Output Vital Signs (last 24 hours): Temp Pulse Resp BP Pulse Ox 98.1 F 69 18 159/77 H 98 01/30/18 23:25 01/30/18 23:25 01/30/18 23:25 01/30/18 23:25 01/30/18 23:25 - Medications Medications: Current Medications Atorvastatin Calcium (Lipitor) 10 mg PO DAILY [facility] Last Admin: 01/30/18 16:49 Dose: 10 mg Dextrose (Dextrose 50% Inj) 0 ml IV STAT PRN; Protocol PRN Reason: Hypoglycemia Protocol Dextrose (Glutose 15) 0 gm PO ONCE PRN; Protocol PRN Reason: Hypoglycemia Protocol Enoxaparin Sodium (Lovenox) 40 mg SC DAILY [facility] PRN Reason: Protocol Last Admin: 01/30/18 08:17 Dose: 40 mg Glucagon (Glucagen Diagnostic Kit) 0 mg IM STAT PRN; Protocol PRN Reason: Hypoglycemia Protocol Lactated Ringer's (Lactated Ringer's) 1,000 mls @ 150 mls/hr IV .Q6H40M [facility] Last Admin: 01/31/18 06:52 Dose: Not Given Insulin Human Regular (Humulin R) 0 units SC ACHS [facility] PRN Reason: Protocol Last Admin: 01/30/18 22:41 Dose: Not Given Ketorolac Tromethamine (Toradol) 15 mg IVP Q6 PRN PRN Reason: Pain, moderate (4-7) Last Admin: 01/30/18 20:02 Dose: 15 mg Lisinopril (Zestril) 2.5 mg PO DAILY [facility] Last Admin: 01/30/18 16:48 Dose: 2.5 mg Metformin HCl (Glucophage) 500 mg PO BIDWM [facility] Last Admin: 01/30/18 16:46 Dose: 500 mg - Labs Labs: 01/31/18 06:00 01/31/18 06:00 PT 10.5 Seconds (9.8-13.1) 01/29/18 11:45 INR 1.0 (0.9-1.2) 01/29/18 11:45 APTT 20.2 Seconds (25.6-37.1) L 01/29/18 11:45 - Constitutional Appears: Well, No Acute Distress - Head Exam Head Exam: ATRAUMATIC, NORMOCEPHALIC - Eye Exam Eye Exam: Normal appearance - ENT Exam ENT Exam: Mucous Membranes Moist, Normal Exam - Neck Exam Neck Exam: Normal Inspection - Respiratory Exam Respiratory Exam: Clear to Ausculation Bilateral, NORMAL BREATHING PATTERN. absent: Rales, Rhonchi, Wheezes, Respiratory Distress - Cardiovascular Exam Cardiovascular Exam: REGULAR RHYTHM, +S1, +S2 - GI/Abdominal Exam GI & Abdominal Exam: Soft, Normal Bowel Sounds. absent: Firm, Guarding, Rigid, Tenderness, Organomegaly - Extremities Exam Extremities Exam: absent: Joint Swelling, Pedal Edema - Neurological Exam Neurological Exam: Alert, Awake, Oriented x3 - Psychiatric Exam Psychiatric exam: Normal Affect, Normal Mood - Skin Skin Exam: Dry, Intact, Normal Color, Warm Assessment and Plan - Assessment and Plan (Free Text) Assessment: Susan Blackwell is a 62F w/ hx of HTN and DM who presents to he ER with complaints of back pain Acute Pancreatitis; etiology unknown; DDx: trauma, r/o autoimmune; Denies ETOH Back pain. DDx: musculoskeletal Family hx of colon cancer Family hx of GB cancer Plan: -abd u/s neg for cholelithiasis -advance to low fat as tolerated -IGG4 pending -avoid smoking or ETOH -pain management as per primary team -monitor I/O -follow-up with primary GI for colonoscopy results -if pancreatitis reoccurs can benefit from oupt EUS for pancreas protocol CT -okay to d/c from GI standpoint D/W Dr. Sheffield <Meli Sheffield - Last Filed: 01/31/18 11:45> Objective - Vital Signs/Intake and Output Vital Signs (last 24 hours): Temp Pulse Resp BP Pulse Ox 97.4 F L 69 18 158/82 H 95 01/31/18 08:01 01/31/18 08:50 01/31/18 08:01 01/31/18 08:50 01/31/18 08:01 - Medications Medications: Current Medications Atorvastatin Calcium (Lipitor) 10 mg PO DAILY [facility] Last Admin: 01/31/18 08:49 Dose: 10 mg Dextrose (Dextrose 50% Inj) 0 ml IV STAT PRN; Protocol PRN Reason: Hypoglycemia Protocol Dextrose (Glutose 15) 0 gm PO ONCE PRN; Protocol PRN Reason: Hypoglycemia Protocol Enoxaparin Sodium (Lovenox) 40 mg SC DAILY [facility] PRN Reason: Protocol Last Admin: 01/31/18 08:49 Dose: 40 mg Glucagon (Glucagen Diagnostic Kit) 0 mg IM STAT PRN; Protocol PRN Reason: Hypoglycemia Protocol Lactated Ringer's (Lactated Ringer's) 1,000 mls @ 150 mls/hr IV .Q6H40M [facility] Last Admin: 01/31/18 06:52 Dose: Not Given Insulin Human Regular (Humulin R) 0 units SC ACHS [facility] PRN Reason: Protocol Last Admin: 01/31/18 08:49 Dose: 1 units Ketorolac Tromethamine (Toradol) 15 mg IVP Q6 PRN PRN Reason: Pain, moderate (4-7) Last Admin: 01/30/18 20:02 Dose: 15 mg Lisinopril (Zestril) 2.5 mg PO DAILY [facility] Last Admin: 01/31/18 08:50 Dose: 2.5 mg Metformin HCl (Glucophage) 500 mg PO BIDWM [facility] Last Admin: 01/31/18 08:49 Dose: 500 mg - Labs Labs: 01/31/18 06:00 01/31/18 06:00 PT 10.5 Seconds (9.8-13.1) 01/29/18 11:45 INR 1.0 (0.9-1.2) 01/29/18 11:45 APTT 20.2 Seconds (25.6-37.1) L 01/29/18 11:45 Attending/Attestation - Attestation I have personally seen and examined this patient.: Yes I have fully participated in the care of the patient.: Yes I have reviewed all pertinent clinical information, including history, physical exam and plan: Yes Notes (Text): 01/31/18 11:45 62 year old female who is admitted with mild acute pancreatitis. Recommend IV hydration/pain control. She is already improved. Low fat diet as tolerated. Await trig/IGG4. No smoking or gallstones. No prior episodes. Only had recent fall prior to onset.
[2018-01-31 08:02] VITALS: BP 158/82; TEMP 97.4
--- NOTE | 2018-01-31 08:20 | CP.PCM.PN ---
Subjective - Date & Time of Evaluation Date of Evaluation: 01/31/18 Time of Evaluation: 07:00 - Subjective Subjective: General Surgery Progress Note - Dr. Isabel 62F seen and examined this AM. No acute events overnight. Patent states she continues to have back pain, well-controlled. Denies any abdominal pain. Tolerating diet. No new complaints. Denies N/V/F/D/C/SOB. Objective - Vital Signs/Intake and Output Vital Signs (last 24 hours): Temp Pulse Resp BP Pulse Ox 97.4 F L 69 18 158/82 H 95 01/31/18 08:01 01/31/18 08:01 01/31/18 08:01 01/31/18 08:01 01/31/18 08:01 - Medications Medications: Current Medications Atorvastatin Calcium (Lipitor) 10 mg PO DAILY [facility] Last Admin: 01/30/18 16:49 Dose: 10 mg Dextrose (Dextrose 50% Inj) 0 ml IV STAT PRN; Protocol PRN Reason: Hypoglycemia Protocol Dextrose (Glutose 15) 0 gm PO ONCE PRN; Protocol PRN Reason: Hypoglycemia Protocol Enoxaparin Sodium (Lovenox) 40 mg SC DAILY [facility] PRN Reason: Protocol Last Admin: 01/30/18 08:17 Dose: 40 mg Glucagon (Glucagen Diagnostic Kit) 0 mg IM STAT PRN; Protocol PRN Reason: Hypoglycemia Protocol Lactated Ringer's (Lactated Ringer's) 1,000 mls @ 150 mls/hr IV .Q6H40M [facility] Last Admin: 01/31/18 06:52 Dose: Not Given Insulin Human Regular (Humulin R) 0 units SC ACHS [facility] PRN Reason: Protocol Last Admin: 01/30/18 22:41 Dose: Not Given Ketorolac Tromethamine (Toradol) 15 mg IVP Q6 PRN PRN Reason: Pain, moderate (4-7) Last Admin: 01/30/18 20:02 Dose: 15 mg Lisinopril (Zestril) 2.5 mg PO DAILY [facility] Last Admin: 01/30/18 16:48 Dose: 2.5 mg Metformin HCl (Glucophage) 500 mg PO BIDWM [facility] Last Admin: 01/30/18 16:46 Dose: 500 mg - Labs Labs: 01/31/18 06:00 01/31/18 06:00 PT 10.5 Seconds (9.8-13.1) 01/29/18 11:45 INR 1.0 (0.9-1.2) 01/29/18 11:45 APTT 20.2 Seconds (25.6-37.1) L 01/29/18 11:45 - Constitutional Appears: Non-toxic, No Acute Distress - Head Exam Head Exam: ATRAUMATIC, NORMAL INSPECTION - Eye Exam Eye Exam: EOMI, Normal appearance Pupil Exam: NORMAL ACCOMODATION - ENT Exam ENT Exam: Mucous Membranes Moist - Neck Exam Neck Exam: Full ROM - Respiratory Exam Respiratory Exam: NORMAL BREATHING PATTERN. absent: Respiratory Distress - Cardiovascular Exam Cardiovascular Exam: REGULAR RHYTHM - GI/Abdominal Exam GI & Abdominal Exam: Soft. absent: Distended, Guarding, Tenderness - Extremities Exam Extremities Exam: Full ROM - Back Exam Back Exam: paraspinal tenderness, tenderness - Neurological Exam Neurological Exam: Alert, Awake, Oriented x3 - Psychiatric Exam Psychiatric exam: Normal Affect, Normal Mood Assessment and Plan - Assessment and Plan (Free Text) Assessment: 62 year old female with pancreatitis Plan: No indication for abx Abdominal US = negative for cholelithiasis GI recs appreciated -Advance to low fat diet as tolerated Pain control per primary No surgical intervention warranted at this time Patient is cleared for dc per surgery Further recs per Dr. Isabel
[2018-01-31] MEDS: Enoxaparin 40 mg Syringe SC SCH (08:49)
[2018-01-31] MEDS: Insulin Regular 100 units/ml SC SCH (08:49)
--- NOTE | 2018-01-31 10:19 | CP.PCM.DIS ---
Provider - Provider Date of Admission: 01/29/18 15:33 Attending physician: Jose Enrique Jurado MD Time Spent in preparation of Discharge (in minutes): 15 Diagnosis - Discharge Diagnosis (1) Pancreatitis Status: Acute Hospital Course - Lab Results Lab Results: Most Recent Lab Values WBC 5.3 K/uL (4.8-10.8) 01/31/18 06:00 RBC 4.80 Mil/uL (3.80-5.20) 01/31/18 06:00 Hgb 14.0 g/dL (12.0-16.0) 01/31/18 06:00 Hct 40.8 % (34.0-47.0) 01/31/18 06:00 MCV 85.1 fl (81.0-99.0) 01/31/18 06:00 MCH 29.3 pg (27.0-31.0) 01/31/18 06:00 MCHC 34.4 g/dL (33.0-37.0) 01/31/18 06:00 RDW 12.6 % (11.5-14.5) 01/31/18 06:00 Plt Count 191 K/uL (130-400) 01/31/18 06:00 MPV 9.5 fl (7.2-11.7) 01/29/18 11:45 Neut % (Auto) 49.2 % (50.0-75.0) L 01/29/18 11:45 Lymph % (Auto) 42.4 % (20.0-40.0) H 01/29/18 11:45 [place] % (Auto) 7.0 % (0.0-10.0) 01/29/18 11:45 Eos % (Auto) 0.8 % (0.0-4.0) 01/29/18 11:45 Baso % (Auto) 0.6 % (0.0-2.0) 01/29/18 11:45 Neut # (Auto) 2.5 K/uL (1.8-7.0) 01/29/18 11:45 Lymph # (Auto) 2.2 K/uL (1.0-4.3) 01/29/18 11:45 [place] # (Auto) 0.4 K/uL (0.0-0.8) 01/29/18 11:45 Eos # (Auto) 0.0 K/uL (0.0-0.7) 01/29/18 11:45 Baso # (Auto) 0.0 K/uL (0.0-0.2) 01/29/18 11:45 PT 10.5 Seconds (9.8-13.1) 01/29/18 11:45 INR 1.0 (0.9-1.2) 01/29/18 11:45 APTT 20.2 Seconds (25.6-37.1) L 01/29/18 11:45 D-Dimer, Quantitative 203 ng/mlDDU (0-230) 01/29/18 11:45 Sodium 139 mmol/l (132-148) 01/31/18 06:00 Potassium 3.5 MMOL/L (3.6-5.0) L 01/31/18 06:00 Chloride 103 mmol/L (98-107) 01/31/18 06:00 Carbon Dioxide 29 mmol/L (22-30) 01/31/18 06:00 Anion Gap 11 (10-20) 01/31/18 06:00 BUN 14 mg/dl (7-17) 01/31/18 06:00 Creatinine 0.5 mg/dl (0.7-1.2) L 01/31/18 06:00 Est GFR ( Amer) > 60 01/31/18 06:00 Est GFR (Non-Af Amer) > 60 01/31/18 06:00 POC Glucose (mg/dL) 142 mg/dL (65-110) H 01/30/18 22:21 Random Glucose 181 mg/dL (65-105) H 01/31/18 06:00 Hemoglobin A1c 13.6 % (4.2-6.5) H D 01/30/18 07:55 Calcium 9.0 mg/dL (8.4-10.2) 01/31/18 06:00 Total Bilirubin 0.5 mg/dl (0.2-1.3) 01/31/18 06:00 AST 22 U/L (14-36) 01/31/18 06:00 ALT 37 U/L (9-52) 01/31/18 06:00 Alkaline Phosphatase 93 U/L (38-126) 01/31/18 06:00 Troponin I < 0.0120 ng/mL (0.00-0.120) 01/29/18 11:45 Total Protein 6.3 G/DL (6.3-8.2) 01/31/18 06:00 Albumin 3.4 g/dL (3.5-5.0) L 01/31/18 06:00 Globulin 2.9 gm/dL (2.2-3.9) 01/31/18 06:00 Albumin/Globulin Ratio 1.2 (1.0-2.1) 01/31/18 06:00 Triglycerides 143 mg/DL (0-149) 01/30/18 06:05 Cholesterol 191 mg/dL (0-199) 01/30/18 06:05 LDL Cholesterol Direct 113 mg/dL (0-129) 01/30/18 06:05 HDL Cholesterol 33 MG/DL (30-70) 01/30/18 06:05 Amylase 79 U/L (30-110) 01/31/18 06:00 Lipase 419 U/L (23-300) H 01/31/18 06:00 Vitamin B12 534 pg/mL (239-931) 01/30/18 06:05 Thyroxine (T4) 7.35 ug/dl (5.5-11.0) 01/30/18 06:05 Total T3 0.781 nmol/L (1.49-2.60) L 01/30/18 06:05 TSH 3rd Generation 1.88 mIU/ML (0.46-4.68) 01/30/18 06:05 - Hospital Course Hospital Course: 62 y/o woman w/ pmh of HTN and DM II admitted for acute pancreatitis. Patient found to have pancreatitis on CT abdomen and lipase elevated to 900s. Patient seen by general surgery and GI. Patient WBC WNL and showed no signs of infection. Patient rehydrated and initially NPO. Patient advanced diet without issue and is tolerating PO. Patient reports regular bowel movement. Patient denies headaches, chest pain, SOB, abdominal pain, nausea, vomiting, diarrhea, dysuria, or fever. The patient has been seen, examined, and deemed medically fit for discharge home. The patient is discharged w/ metformin, lisinopril, and atorvastatin. The patient is to follow up w/ Dr. Fu and GI in 1 week. Discharge Exam - Head Exam Head Exam: ATRAUMATIC, NORMAL INSPECTION - Eye Exam Eye Exam: Normal appearance - ENT Exam ENT Exam: Mucous Membranes Moist - Neck Exam Neck exam: Full Rom - Respiratory Exam Respiratory Exam: Clear to PA & Lateral. absent: Accessory Muscle Use, Decreased Breath Sounds, Rales, Rhonchi, Wheezes, Respiratory Distress - Cardiovascular Exam Cardiovascular Exam: REGULAR RHYTHM, RRR. absent: Tachycardia - GI/Abdominal Exam GI & Abdominal Exam: Normal Bowel Sounds, Soft. absent: Distended, Tenderness - Extremities Exam Extremities exam: normal inspection - Neurological Exam Neurological exam: Alert, Oriented x3 - Skin Skin Exam: Dry, Intact, Normal Color, Warm Discharge Plan - Discharge Medications Prescriptions: Atorvastatin [Lipitor] 10 mg PO DAILY #30 tab Lisinopril [Zestril] 2.5 mg PO DAILY #30 tab metFORMIN [glucOPHAGE] 500 mg PO BIDWM #60 tab - Follow Up Plan Condition: FAIR Disposition: HOME/ ROUTINE Instructions: Pancreatitis (DC) Additional Instructions: pt. cleared for discharge to Home today by Dr.Bhatia Maite f/u with , outpatient hacer carlota con lazo primario dentro de 1 semana Referrals: Meli Sheffield MD [Medical Doctor] - Aby Fu MD [Medical Doctor] - Mrala Isabel MD [Staff Provider] -
[2018-02-02 03:02] VITALS: O2SAT 98
== END 2018-01-31 12:10 | disposition home or self-care (01) | DRG 204 ==
LOC: H.ER 10:47 → H.ERHOLD 15:33 → H.MEDSURG1 18:36
PROVIDERS: ADMIT Internal Medicine; ATTEND Internal Medicine
DX: K85.90 Acute pancreatitis without necrosis or infection, unspecified (principal); E11.65 Type 2 diabetes mellitus with hyperglycemia; Z91.14 Patient's other noncompliance with medication regimen; I10 Essential (primary) hypertension; M54.6 Pain in thoracic spine

== ENCOUNTER 2018-04-25 10:56 | Emergency (ER) | payer OTHER, SELFPAY ==
[2018-04-25 10:56] VITALS: BMI 24.9
--- NOTE | 2018-04-25 11:41 | ED PDOC ---
Syncope/Near Syncope/Dizziness Time Seen by Provider: 04/25/18 11:16 Chief Complaint (Nursing): Dizziness/Lightheaded History Per: Patient, Family History/Exam Limitations: language barrier (Pt refused voyce, wanted Son to translate ) Onset/Duration Of Symptoms: Hrs Current Symptoms Are (Timing): Better Activity At Onset Of Symptoms: Standing Associated Symptoms Preceding Syncopal Episode: Lightheadedness, Other (loss of balance ) Seizure Or Post-ictal Symptoms: None Additional Complaint(s): CC: dizziness and loss of balance HPI: 63 YO female with PMHx NIDDM, HTN and HLD presents to [facility] ED for new onset imbalance and dizziness. Pt states that when she woke up this morning she felt very dizzy and nautous. Subsequently when pt tried to stand up and walk she was not able to walk or stand up straight and almost experience a fall. Additionally, pt states that she has mild weakness and numbness of the RUE and b /l in the lower ex (R>L). Went to bed last night without any symptoms, last known normal. Of note, pt was d/c from [facility] in 01/2018 with Atorvastatin, Lisinopril and Metformin but pt has not been taking her meds over 1 month and did not follow up with any providers as instructed in discharge. Voyce used for translation [id number] PMD: none PMHx: NIDDM, HTN and HLD; per chart review 1x episode of a fib in distant past SurgHx: fibroiodectomy SHx: denies ETOH, smoking and illicit drug use FHx: uterine CA in mother and Hx of HTN Allergies: NKDA - Symptoms Of CVA Character Of Deficits: Right: Weakness Recent Aspirin Use: No - Risk Factors TAD Risk Factors: Pos: Hypertension NIHSS Stroke Scale - Date/Time Evaluation Performed Date Performed: 04/25/18 Time Performed: 12:15 - How Severe is the Stroke Level of Consciousness: 0=Alert LOC to Questions: 0=Both comments correct LOC to commands: 0=Obeys both correctly Best Gaze: 0=Normal Visual: 0=No visual loss Facial: 0=Normal Motor Arm - Left: 0=No drift Motor Arm - Right: 0=No drift Motor Leg - Left: 0=No drift Motor Leg - Right: 0=No drift Limb Ataxia: 0=Absent Sensory: 0=Normal Best Language: 0=No aphasia Dysarthia: 0=Normal articulation Extinction & Inattention (Neglect): 0=Normal, no object Score: 0 Past Medical History Vital Signs: Last Vital Signs Temp 98 F 04/25/18 11:16 Pulse 66 04/25/18 11:16 Resp 20 04/25/18 11:16 BP 194/107 H 04/25/18 11:16 Pulse Ox 97 04/25/18 11:16 - Medical History PMH: Diabetes, HTN Denies: Asthma, Atrial Fibrillation, Bronchitis, Cardia Arrhythmia, CHF, COPD , Dementia, HIV, Hypercholesterolemia, Mitral Valve Prolapse, Peripheral Edema, Chronic Kidney Disease - Surgical History Surgical History: Denies: Pacemaker - Family History Family History: States: Hypertension - Living Arrangements Living Arrangements: With Family - Social History Current smoker - smoking cessation education provided: No Alcohol: None Drugs: Denies - Immunization History Hx Tetanus Toxoid Vaccination: No Hx Influenza Vaccination: No Hx Pneumococcal Vaccination: No - Home Medications Home Medications: Ambulatory Orders Medication Instructions Recorded Atorvastatin [Lipitor] 10 mg PO DAILY #30 tab 04/25/18 Lisinopril [Zestril] 5 mg PO DAILY #30 tab 04/25/18 Meclizine [Meclizine*] 25 mg PO Q6 PRN #15 tab 04/25/18 metFORMIN [glucOPHAGE] 500 mg PO BIDWM #60 tab 04/25/18 - Allergies Allergies/Adverse Reactions: Allergies Allergy/AdvReac Type Severity Reaction Status Date / Time No Known Allergies Allergy Verified 04/25/18 11:10 Review of Systems Constitutional: Negative for: Fever, Chills Cardiovascular: Negative for: Chest Pain, Palpitations Respiratory: Negative for: Cough, Shortness of Breath Gastrointestinal: Positive for: Nausea. Negative for: Vomiting Neurological: Positive for: Dizziness, Other (balance issues ). Negative for: Change in Speech, Confusion, Seizures Physical Exam - Physical Exam Appears: Positive for: Uncomfortable Eye Exam: Positive for: EOMI, PERRL Cardiovascular/Chest: Positive for: Regular Rate, Rhythm. Negative for: Murmur Respiratory: Positive for: Normal Breath Sounds. Negative for: Wheezing Gastrointestinal/Abdominal: Positive for: Normal Exam, Soft. Negative for: Tenderness Extremity: Positive for: Normal ROM. Negative for: Tenderness, Pedal Edema Neurologic/Psych: Positive for: Alert, well testing operator II-XII, Oriented, Other (mild decrease strength in RUE when compared to LUE. sensory and motor intact b/l in upper and lower ext, normal heel to [place] b/l ). Negative for: Motor/Sensory Deficits, Aphasia, Facial Droop - Laboratory Results Result Diagrams: 04/25/18 12:10 04/25/18 12:10 - ECG O2 Sat by Pulse Oximetry: 97 - Progress ED Course And Treament: 63 YO Female hx of HTN and NIDDM with dizziness, imbalance and weakness. NIHSS 0 -CT head -cbc, cmp, trop, coags -Zofran -Udip, Upreg -EKG -ACHS 13:10--pt seen and reevaluated States that she feels better. Blood work reviewed with pt, normal CT head sig for several tiny left basal ganglia hypodensities, possibly small lacunar infarcts. -Neurology consult; follow up recs -PO Antivert -IVF -ASA 324mg 14:15--Per neurology, Dr. Reynoso will get CTA head and neck and echo 14:25--pt endorsed to Dr. Cohn, inpatient Hospitalist for admission CTA neg Pt states that she feels much better after PO meds and fluid As per Neuro recs; Will admit patient to tele for obs pending workup Findings and plan discussed with patient, pt agrees 16:[address] Cohn, case discussed with Dr. Reynoso Neurologist Pt is ambulating, workup thus far negative BP slowly improving, dizziness resolved Plan discussed with pt and family by bedside. Agrees with plan, will d/c home with follow up in [facility]. Disposition - Clinical Impression Clinical Impression: Dizziness, Hypertension - Disposition Referrals: [facility] [Outside] Pepe Reynoso MD [Medical Doctor] - Disposition Time: 16:47 Condition: GOOD Additional Instructions: Return for worsening. Take your medications as instructed. Follow up with your PCP in 2-3 days. Prescriptions: Atorvastatin [Lipitor] 10 mg PO DAILY #30 tab Lisinopril [Zestril] 5 mg PO DAILY #30 tab Meclizine [Meclizine*] 25 mg PO Q6 PRN #15 tab PRN Reason: Dizziness metFORMIN [glucOPHAGE] 500 mg PO BIDWM #60 tab Instructions: High Blood Pressure in Adults, Dizziness, Nonvertigo, (DC) Forms: [employer] (Maldivian) Print Language: LAO
[2018-04-25 12:24] LABS: PROTHROMBIN TIME 11.2 Seconds (9.8-13.1)
[2018-04-25 12:28] LABS: PARTIAL THROMBOPLASTIN TIME 26.9 Seconds (25.6-37.1)
[2018-04-25 12:31] LABS: BASO % 0.4 % (0.0-2.0); EOS % 0.2 % (0.0-4.0); HEMOGLOBIN 13.5 g/dL (12.0-16.0); LYMPH # 1.5 K/uL (1.0-4.3); MEAN CELL VOLUME 87.2 fl (81.0-99.0); MEAN CORPUSCULAR HEMOGLOBIN 29.2 pg (27.0-31.0); MEAN CORPUSCULAR HGB CONC 33.5 g/dL (33.0-37.0); MEAN PLATELET VOLUME 8.8 fl (7.2-11.7); MONO # 0.3 K/uL (0.0-0.8); MONO % 3.9 % (0.0-10.0); NEUT # 6.1 K/uL (1.8-7.0); NEUT % 76.5 % (50.0-75.0); NRBC % 0.1 % (0.0-0.0); RBC 4.64 Mil/uL (3.80-5.20); RED CELL DISTRIBUTION WIDTH 13.2 % (11.5-14.5)
[2018-04-25 12:33] LABS: ALB/GLOB RATIO 1.6 (1.0-2.1); ALBUMIN 4.4 g/dL (3.5-5.0); ALT/SGPT 34 U/L (9-52); AST/SGOT 22 U/L (14-36); BLOOD UREA NITROGEN 16 mg/dl (7-17); GFR NON-AFRICAN AMERICAN > 60
--- NOTE | 2018-04-25 12:51 | CT ---
Date of service: 04/25/2018 PROCEDURE: CT HEAD WITHOUT CONTRAST. HISTORY: new onset dizziness COMPARISON: None available. TECHNIQUE: Axial computed tomography images were obtained through the head/brain without intravenous contrast. Radiation dose: Total exam DLP = 751.32 mGy-cm. This CT exam was performed using one or more of the following dose reduction techniques: Automated exposure control, adjustment of the mA and/or kV according to patient size, and/or use of iterative reconstruction technique. FINDINGS: HEMORRHAGE: No intracranial hemorrhage. BRAIN: No mass effect or edema. Several tiny left basal ganglia hypodensities may reflect small lacunar infarcts. The vallejo-white matter differentiation appears otherwise grossly intact. Please note that MRI with diffusion imaging is more sensitive in the detection of acute ischemic event. VENTRICLES: No hydrocephalus. CALVARIUM: Unremarkable. PARANASAL SINUSES: Unremarkable as visualized. No significant inflammatory changes. MASTOID AIR CELLS: Unremarkable as visualized. No inflammatory changes. OTHER FINDINGS: None. IMPRESSION: Several tiny left basal ganglia hypodensities, possibly small lacunar infarcts.
[2018-04-25] MEDS ORDERED: Sodium Chloride 0.9% 1,000 ML IV SCH (13:45)
[2018-04-25] MEDS ORDERED: Iodixanol 320 MG/ML 100 ML BOTTLE IV ONE (14:21)
[2018-04-25] MEDS ORDERED: Sodium Chloride 0.9% 50 ML IV ONE (14:21)
--- NOTE | 2018-04-25 14:31 | CARD ---
APPROVED REPORT Date of service: 04/25/2018 <Conclusion> Normal sinus rhythm Possible Left atrial enlargement Left ventricular hypertrophy Abnormal ECG
--- NOTE | 2018-04-25 15:08 | CT ---
Date of service: 04/25/2018 PROCEDURE: CT Angiography of the neck and brain with contrast HISTORY: Dizziness COMPARISON: None. TECHNIQUE: Contiguous axial images of the neck and brain were obtained from the level of the vertex of the skull to the superior mediastinum in the arteriographic phase of enhancement. Coronal and sagittal reformats or also generated. IV contrast dose: 90 cc Visipaque 320 Radiation Dose - DLP: 420.0 mGy-cm This CT exam was performed using one or more of the following dose reduction techniques: Automated exposure control, adjustment of the mA and/or kV according to patient size, and/or use of iterative reconstruction technique. FINDINGS: The visualized transverse portion of the aortic arch widely patent without significant atherosclerotic disease. The origins of the great vessels also widely patent. The common carotid arteries, carotid bifurcations and internal carotid artery's including the petrous cavernous and supraclinoid segments also widely patent without evidence of occlusion dissection or pseudoaneurysm formation. Vertebral arteries are also patent throughout neither which appears more significantly dominant than the other. Basilar artery also patent. The visualized major branches of the [place] and distal cerebral vasculature patent without evidence of occlusion, significant stenosis, large aneurysm or vascular malformation. OTHER FINDINGS: None. IMPRESSION: Unremarkable MRA of the neck and brain
[2018-04-25 15:57] VITALS: BP 160/79
[2018-04-25 16:37] VITALS: PULSE 77; RESP 18; TEMP 97.8
[2018-04-25 16:47] VITALS: O2SAT 97
--- NOTE | 2018-04-25 17:44 | CARD ---
APPROVED REPORT Date of service: 04/25/2018 EXAM: Two-dimensional and M-mode echocardiogram with Doppler and color Doppler. Other Information Quality : GoodRhythm : NSR INDICATION CVA/TIA 2D DIMENSIONS IVSd1.13 (0.7-1.1cm)LVDd4.20 (3.9-5.9cm) LVOT Diameter1.89 (1.8-2.4cm)PWd1.10 (0.7-1.1cm) IVSs1.44 (0.8-1.2cm)LVDs2.70 (2.5-4.0cm) FS (%) 30.9 %PWs1.45 (0.8-1.2cm) M-Mode DIMENSIONS Left Atrium (MM)4.44 (2.5-4.0cm)IVSd1.08 (0.7-1.1cm) Aortic Root2.43 (2.2-3.7cm)LVDd4.44 (4.0-5.6cm) Aortic Cusp Exc.1.88 (1.5-2.0cm)PWd1.05 (0.7-1.1cm) IVSs1.68 cmFS (%) 39 % LVDs2.73 (2.0-3.8cm)PWs1.63 cm Aortic Valve AoV Peak Bejcewjj489.6cm/sAoV VTI30.4cmAO Peak GR.7mmHg LVOT Peak Pcccrepy53.0cm/sLVOT VTI22.86cmAO Mean GR.3mmHg Mitral Valve MV E Rggxifqt59.2cm/sMV DECEL [id number] A Tfoucmav12.7cm/s MV AIE15ruE/A ratio1.1MVA (PHT)4.36cm2 TDI Lateral E' Peak V11.65cm/sMedial E' Peak V9.04cm/sE/Lateral E'7.4 E/Medial E'9.5 Pulmonary Valve PV Peak Uokpmdcl03.3cm/s Tricuspid Valve [id number] LEFT VENTRICLE The left ventricle is normal size. There is normal left ventricular wall thickness. The left ventricular systolic function is normal. The estimated ejection fraction is 65% No regional wall motion abnormalities noted.. The left ventricular diastolic function is normal. No left ventricle thrombus noted on this study. There is no ventricular septal defect visualized. There is no mass noted in the left ventricle. RIGHT VENTRICLE The right ventricle is normal size. There is normal right ventricular wall thickness. The right ventricular systolic function is normal. ATRIA The left atrium size is mildly dilated The right atrium size is normal. The interatrial septum is intact with no evidence for an atrial septal defect. AORTIC VALVE The aortic valve is normal in structure. No aortic regurgitation is present. There is no aortic valvular stenosis. MITRAL VALVE The mitral valve is normal in structure. There is no mitral valve stenosis. There is mild mitral valve regurgitation noted. TRICUSPID VALVE The tricuspid valve is normal in structure. There is mild tricuspid valve regurgitation noted. PASP within normal limits PULMONIC VALVE The pulmonary valve is normal in structure. There is no pulmonic valvular regurgitation. GREAT VESSELS The aortic root is normal in size. The ascending aorta is normal in size. The pulmonary artery is normal. The IVC is normal in size and collapses >50% with inspiration. PERICARDIAL EFFUSION There is no pericardial effusion. <Conclusion> Mild mitral insufficiency Mild TR with normal PASP Normal LV function The estimated ejection fraction is 65%
== END 2018-04-25 16:25 | disposition home or self-care (01) ==
LOC: H.ER 10:56 → UNDOADMOB 14:16 → H.ERHOLD 14:16 → H.ER 16:25
DX: R42 Dizziness and giddiness (principal); I10 Essential (primary) hypertension; E11.9 Type 2 diabetes mellitus without complications; E78.5 Hyperlipidemia, unspecified; Z82.49 Family history of ischemic heart disease and other diseases of the circulatory system; Z79.84 Long term (current) use of oral hypoglycemic drugs
CPT/HCPCS: 70450; 70496; 70498; 80053; 82948; 84484; 85025; 85610; 85730; 93005; 93306; 96374; 99282; J2405; J7030; Q9967